=== PATIENT | male | born 1945 | race Caucasian/White ===

== ENCOUNTER 2020-10-23 22:10 | Emergency (ER) | payer MEDICARE ==
[2020-10-23 22:25] LABS: HEMOGLOBIN 15.4 gm/dl (14.0-17.5); RED BLOOD COUNT 4.56 M/UL (4.20-5.50); WHITE BLOOD COUNT 12.8 K/UL (4.5-11.0)
[2020-10-23 23:04] LABS: BUN/CREATININE RATIO 12 (0-10)
== END 2020-10-24 00:09 | disposition short-term general hospital (02) ==
LOC: ER1 22:10
PROVIDERS: Emergency Medicine
DX: I62.00 Nontraumatic subdural hemorrhage, unspecified (principal); I61.8 Other nontraumatic intracerebral hemorrhage; Z20.822 Contact with and (suspected) exposure to COVID-19
CPT/HCPCS: 36415; 70450; 71045; 80053; 81001; 82550; 82553; 83735; 83874; 84484; 85025; 85610; 85730; 86850; 86900; 86901; 87635; 93005; 96374; 96375; 99285; J0360; J1953